=== PATIENT | female | born 1955 | race Caucasian/White ===

== ENCOUNTER → 2017-05-21 | Outpatient (REF) | payer BC | LOC: M SFHCWAGY 08:32 | DX: Z12.4 Encounter for screening for malignant neoplasm of cervix (principal) | CPT/HCPCS: G0123 ==

== ENCOUNTER → 2018-10-11 | Outpatient (RCR) | payer BC | LOC: M PT 09-23 07:19 | PROVIDERS: ATTEND Physician Assistant Medical | DX: M70.71 Other bursitis of hip, right hip (principal); Z87.39 Personal history of other diseases of the musculoskeletal system and connective tissue; M54.5 Low back pain ==

== ENCOUNTER 2018-10-28 07:55 | Outpatient (RCR) | payer BC | END 2018-11-10 | LOC: M PT 07:55 | PROVIDERS: ATTEND Physician Assistant Medical | DX: M70.71 Other bursitis of hip, right hip (principal); Z87.39 Personal history of other diseases of the musculoskeletal system and connective tissue; M54.5 Low back pain ==

== ENCOUNTER 2019-11-03 08:50 | Emergency (ER) | payer BC ==
[~2019-11-03] VITALS: Ht 167.6 cm; Wt 64.4 kg
[2019-11-03] MEDS ORDERED: MONT10TA4 (09:00)
[2019-11-03] MEDS ORDERED: MOME50SP2 (09:00)
[2019-11-03] MEDS ORDERED: ESTR0.1C5 (09:00)
[2019-11-03] MEDS ORDERED: ECOT81TA5 PO (09:09)
[2019-11-03] MEDS ORDERED: FAMOTIDINE 20 MG TAB PO ONE (09:30)
[2019-11-03 09:33] LABS: BASO % 0.7 % (0.0-1.0); HEMATOCRIT 41.9 % (36.0-47.0); HEMOGLOBIN 13.7 g/dl (12.0-15.5); LYMPH # 0.8 10^3/uL (1.5-5.0); LYMPH % 18.4 % (24.0-44.0); MEAN CORPUSCULAR HEMOGLOBIN 27.5 pg (27.0-33.0); MEAN CORPUSCULAR HGB CONC 32.7 g/dl (32.0-36.5); MEAN CORPUSCULAR VOLUME 84.1 fl (80.0-96.0); MONO # 0.5 10^3/uL (0.0-0.8); MONO % 11.9 % (0.0-5.0); NEUTROPHILS # 2.9 10^3/uL (1.5-8.5); NEUTROPHILS % 68.5 % (36.0-66.0); RED BLOOD COUNT 4.98 10^6/uL (4.00-5.40); WHITE BLOOD COUNT 4.3 10^3/uL (4.0-10.0)
[2019-11-03 09:41] LABS: INR 0.97; PROTHROMBIN TIME 12.6 SECONDS (11.8-14.0)
[2019-11-03 09:42] LABS: PARTIAL THROMBOPLASTIN TIME 29.4 SECONDS (25.0-38.4)
[2019-11-03 09:59] LABS: PLATELET COUNT, AUTOMATED 85 10^3/uL (150-450)
[2019-11-03 10:23] LABS: ALBUMIN 3.6 GM/DL (3.2-5.2); ALT/SGPT 79 U/L (12-78); BILIRUBIN,DIRECT < 0.1 MG/DL (0.0-0.2); BILIRUBIN,TOTAL 0.8 MG/DL (0.2-1.0); BLOOD UREA NITROGEN 14 MG/DL (7-18); CALCIUM LEVEL 9.2 MG/DL (8.8-10.2); CARBON DIOXIDE LEVEL 26 MEQ/L (21-32); CHLORIDE LEVEL 102 MEQ/L (98-107); CREATININE FOR GFR 0.83 MG/DL (0.55-1.30); GLOMERULAR FILTRATION RATE > 60.0 (>45); GLUCOSE, FASTING 152 MG/DL (70-100); LIPASE 157 U/L (73-393); POTASSIUM SERUM 4.1 MEQ/L (3.5-5.1); SODIUM LEVEL 136 MEQ/L (136-145); TOTAL PROTEIN 7.8 GM/DL (6.4-8.2)
--- NOTE | 2019-11-03 11:29 | REP ---
Right upper quadrant sonography: History: Upper abdominal pain. Elevated liver function studies. Comparison study: No comparison imaging. Findings: Scanning through the right upper quadrant of the abdomen demonstrates a normal sized, thin-walled gallbladder without evidence of stone or polyp. Common bile duct is normal measuring 0.6 cm in greatest diameter. There is a 1.8 cm cyst in the hepatic parenchyma. No other focal liver lesion is seen. Liver size is normal. No pancreatic abnormality is observed. The right kidney is somewhat ptotic. No right renal abnormality is seen. There is no evidence of ascites. The right kidney measures 10.5 x 5.0 x 3.9 cm. Impression: Small hepatic cyst, otherwise negative right upper quadrant sonography. Electronically Signed by Pollo Rangel MD 11/03/2019 11:09 A
[2019-11-03] MEDS ORDERED: PEPC1TAB5 PO (12:02)
[2019-11-03] MEDS ORDERED: SIME180C PO (12:02)
[2019-11-03 12:15] VITALS: BP 134/89
[2019-11-03 12:41] LABS: HEPATITIS B SURFACE ANTIGEN NEGATIVE (NEGATIVE)
[2019-11-03 13:08] LABS: HEPATITIS C VIRUS ABY INDEX 0.3 INDEX (<0.8)
[2019-11-03 13:09] LABS: HEPATITIS B CORE ANTIBODY IGM NEGATIVE (NEGATIVE)
[2019-11-03 13:11] LABS: HEPATITIS A ANTIBODY IGM NEGATIVE (NEGATIVE)
--- NOTE | 2019-11-03 13:26 | REP ---
ACUTE ABDOMINAL SERIES: Three views. HISTORY: Epigastric pain. Bloating. FINDINGS: Upright chest radiograph is unremarkable. The thoracic aorta slightly tortuous. Heart size is normal. Pulmonary vasculature is not increased. Lung navarro are clear. There is no evidence of infiltrate or free subdiaphragmatic air. Supine and erect views of the abdomen demonstrate a dextroconvex moderate scoliotic curve in the lumbar spine. The patient status post L4-5 laminectomy and posterior element fusion. No acute bony abnormality is seen. Air and stool noted in a nondistended colon. Air is seen in a normal appearing appendix. Psoas margins and flank stripes are intact. No mass, organomegaly, or pathologic calcification is appreciated. IMPRESSION: No acute abnormality. Dextroconvex lumbar scoliosis. L4-5 fusion hardware. Electronically Signed by Pollo Rangel MD 11/03/2019 05:05 P
== END 2019-11-03 12:17 | disposition home or self-care (01) ==
LOC: M ED 08:50
DX: K29.70 Gastritis, unspecified, without bleeding (principal); R14.0 Abdominal distension (gaseous); D69.6 Thrombocytopenia, unspecified; K76.89 Other specified diseases of liver; R94.5 Abnormal results of liver function studies; M41.26 Other idiopathic scoliosis, lumbar region; J45.909 Unspecified asthma, uncomplicated; Z79.890 Hormone replacement therapy; Z79.82 Long term (current) use of aspirin; Z79.899 Other long term (current) drug therapy

== ENCOUNTER → 2019-11-04 | Outpatient (REF) | payer BC ==
[~2019-11-04] MED LIST: ECOT81TA5 PO; ESTR0.1C5; MOME50SP2; MONT10TA4; PEPC1TAB5 PO; SIME180C PO
== END ==
LOC: M SFHCWAGY 17:45
PROVIDERS: ATTEND Nurse Practitioner Women's Health
DX: Z12.4 Encounter for screening for malignant neoplasm of cervix (principal)
CPT/HCPCS: 87624; G0123

== ENCOUNTER → 2021-04-12 | Outpatient (REF) | payer BC, MEDICARE ==
[~2021-04-12] MED LIST changes: -MONT10TA4; +MONT10TA97; -SIME180C PO; +SIME180C25 PO
== END ==
LOC: M LAB REF 17:44
PROVIDERS: ATTEND Physician Assistant
DX: C44.602 Unspecified malignant neoplasm of skin of right upper limb, including shoulder (principal)

== ENCOUNTER → 2021-07-29 | Outpatient (REF) | payer BC, MEDICARE | LOC: M SFHCDERM 17:27 | PROVIDERS: ATTEND Dermatology | DX: C44.629 Squamous cell carcinoma of skin of left upper limb, including shoulder (principal); L57.8 Other skin changes due to chronic exposure to nonionizing radiation ==

== ENCOUNTER → 2021-09-27 | Outpatient (REF) | payer BC, MEDICARE | LOC: M PLALAB 08:42 | PROVIDERS: ATTEND Advanced Practice Midwife | DX: Z12.4 Encounter for screening for malignant neoplasm of cervix (principal) ==

== ENCOUNTER → 2022-10-11 | Outpatient (REF) | payer BC, MEDICARE ==
[2022-10-11 12:50] LABS: ALBUMIN 3.9 G/DL (3.2-5.2); ALKALINE PHOSPHATASE 39 U/L (46-116); ALT/SGPT 15 U/L (7.0-40); AST/SGOT 20 U/L (<34); BILIRUBIN,TOTAL 0.7 MG/DL (0.3-1.2); BLOOD UREA NITROGEN 17 MG/DL (9-23); CALCIUM LEVEL 9.3 MG/DL (8.3-10.6); CARBON DIOXIDE LEVEL 27 MMOL/L (20-31); CHLORIDE LEVEL 106 MMOL/L (98-107); CHOLESTEROL LEVEL 241 MG/DL (<200); CREATININE FOR GFR 0.84 MG/DL (0.55-1.30); GLOMERULAR FILTRATION RATE > 60.0 (>45); GLUCOSE, FASTING 103 MG/DL (74-106); HDL CHOLESTEROL 85.8 MG/DL (>40); LDL CHOLESTEROL 138.8 MG/DL (<100); NON-HDL-C 155.2 MG/DL; SODIUM LEVEL 140 MMOL/L (136-145); TOTAL PROTEIN 6.8 G/DL (5.7-8.2); TRIGLYCERIDES LEVEL 82 MG/DL (<150)
== END ==
LOC: M LABDRAWC 10:52
PROVIDERS: ATTEND Internal Medicine
DX: E78.5 Hyperlipidemia, unspecified (principal)

== ENCOUNTER → 2024-04-28 | Outpatient (REF) | payer MEDICARE ==
[~2024-04-28] MED LIST changes: -SIME180C25 PO; +SIME1CAP4 PO
== END ==
LOC: M SFHCDERM 17:48
PROVIDERS: ATTEND Physician Assistant
DX: C44.729 Squamous cell carcinoma of skin of left lower limb, including hip (principal)